=== PATIENT | male | born 1945 | race Caucasian/White ===

== ENCOUNTER 2016-07-30 15:35 | Emergency (ER) | payer MEDICARE ==
--- NOTE | 2016-07-30 15:47 | ER Document Report ---
ED Medical Screen (RME) - General Stated Complaint: BREATHING PROBLEM Mode of Arrival: Ambulatory Information source: Patient Notes: Patient complains of cough and upper respiratory symptoms for the past 3 weeks. Patient has had 2 separate courses of azithromycin without improvement of his symptoms. Patient denies any chest pain but does report shortness of breath. hx: Diabetes I have greeted and performed a rapid initial assessment of this patient. A comprehensive ED assessment and evaluation of the patient, analysis of test results and completion of the medical decision making process will be conducted by additional ED providers. TRAVEL OUTSIDE OF THE [place] IN LAST 30 DAYS: No - Related Data Allergies/Adverse Reactions: No Known Allergies Allergy (Verified 07/30/16 15:42) Past Medical History - Past Medical History Cardiac Medical History: Reports: Hx Hypercholesterolemia Neurological Medical History: Reports: Hx Cerebrovascular Accident Endocrine Medical History: Reports: Hx Diabetes Mellitus Type 2 Past Surgical History: Reports: Hx Cardiac Catheterization - Immunizations Hx Diphtheria, Pertussis, Tetanus Vaccination: Yes Physical Exam - Vital signs Vitals: Temp Pulse Resp BP Pulse Ox 97.5 F 91 28 H 148/68 H 98 07/30/16 15:41 07/30/16 15:41 07/30/16 15:41 07/30/16 15:41 07/30/16 15:41 - Respiratory Respiratory status: No respiratory distress Breath sounds: Normal Course - Vital Signs Vital signs: Temp Pulse Resp BP Pulse Ox 97.5 F 91 28 H 148/68 H 98 07/30/16 15:41 07/30/16 15:41 07/30/16 15:41 07/30/16 15:41 07/30/16 15:41
[2016-07-30 16:54] LABS: APPEARANCE,URINE CLEAR; BILIRUBIN,URINE NEGATIVE (NEGATIVE); GLUCOSE, URINE NEGATIVE (NEGATIVE); KETONES,URINE NEGATIVE (NEGATIVE); LEUKOCYTE ESTERASE,URINE NEGATIVE (NEGATIVE); NITRITE,URINE NEGATIVE (NEGATIVE); PROTEIN,URINE NEGATIVE (NEGATIVE); URINE SPECIFIC GRAVITY 1.023; UROBILINOGEN,URINE NEGATIVE mg/dL (<2.0)
[2016-07-30 17:17] LABS: ABSOLUTE LYMPHOCYTES (AUTO) 1.4 10^3/uL (0.5-4.7); ABSOLUTE MONOCYTES (AUTO) 0.5 10^3/uL (0.1-1.4); ABSOLUTE NEUT (AUTO) 5.3 10^3/uL (1.7-8.2); BASOPHILS % (AUTO) 0.1 % (0-2); EOSINOPHILS % (AUTO) 0.3 % (0-6); HEMATOCRIT 42.1 % (37.9-51.0); HEMOGLOBIN 14.3 g/dL (13.5-17.0); HGB HCT DIFFERENCE 0.8; LYMPHOCYTES % (AUTO) 19.6 % (13-45); MEAN CORPUSCULAR HEMOGLOBIN 28.6 pg (27.0-33.4); MEAN CORPUSCULAR HGB CONC 33.9 g/dL (32.0-36.0); MEAN CORPUSCULAR VOLUME 84 fl (80-97); MONOCYTES % (AUTO) 6.6 % (3-13); RED BLOOD COUNT 4.99 10^6/uL (4.35-5.55); RED CELL DISTRIBUTION WIDTH 13.9 % (11.5-14.0); SEGMENTED NEUTROPHILS % (AUTO) 73.4 % (42-78); WHITE BLOOD COUNT 7.2 10^3/uL (4.0-10.5)
[2016-07-30 17:25] LABS: ALANINE AMINOTRANSFERASE 29 U/L (21-72); ALBUMIN 5.2 g/dL (3.5-5.0); ALKALINE PHOSPHATASE 71 U/L (38-126); ANION GAP 16 (5-19); ASPARTATE AMINO TRANSFERASE 25 U/L (17-59); BILIRUBIN,TOTAL 0.9 mg/dL (0.2-1.3); BLOOD UREA NITROGEN 17 mg/dL (7-20); CARBON DIOXIDE 28 mmol/L (22-30); CHLORIDE 99 mmol/L (98-107); CREATINE KINASE 40 U/L (55-170); CREATININE RESULT 1.21 mg/dL (0.52-1.25); GLUCOSE 125 mg/dL (75-110); MAGNESIUM 1.8 mg/dL (1.6-2.3); POTASSIUM 4.4 mmol/L (3.6-5.0); SODIUM 143.3 mmol/L (137-145); TOTAL PROTEIN 8.2 g/dL (6.3-8.2)
[2016-07-30 17:37] LABS: CREATINE KINASE MB 0.26 ng/mL (<4.55); TROPONIN I < 0.012 ng/mL
[2016-07-30] MEDS ORDERED: ALBUTEROL SULFATE 0.083% NEB 2.5 MG/3 ML AMPUL NEB ONE (18:55)
--- NOTE | 2016-07-30 18:58 | ER Document Report ---
ED Flu Like - General Chief Complaint: Flu Symptoms Stated Complaint: BREATHING PROBLEM Time seen by provider: 18:55 Mode of Arrival: Ambulatory Information source: Patient, Relative - Rabia TRAVEL OUTSIDE OF THE [place] IN LAST 30 DAYS: No - HPI Patient complains to provider of: cough, congestion, fever, nausea, diarrhea Onset: Other - 2-3 weeks Timing/Duration: Persistent Quality of pain: No pain Severity: Mild Associated symptoms: Chills, Diarrhea, Fever, Nausea Similar symptoms previously: No Recently seen / treated by doctor: Yes Notes: Patient is a 70-year-old male who presents to the emergency room with his complaining of 2-3 weeks of generalized symptoms that her flulike in nature, he' s had cough, cold, congestion, fever at times, nausea and diarrhea earlier this week, he lost approximately 13 pounds, his cough is productive of a small amount of clear colored phlegm, he's been drinking fluids okay, denies any urinary symptoms, he has been seen by his primary care provider at least twice during the course of this illness and has been on 2 separate courses of Z-Jarret antibiotics, he denies any pain anywhere at the present time - Related Data Allergies/Adverse Reactions: No Known Allergies Allergy (Verified 07/30/16 15:42) Past Medical History - General Information source: Patient - Social History Smoking Status: Unknown if Ever Smoked Chew tobacco use (# tins/day): Yes Frequency of alcohol use: None Drug Abuse: None Family History: Reviewed & Not Pertinent Patient has suicidal ideation: No Patient has homicidal ideation: No - Past Medical History Cardiac Medical History: Reports: Hx Hypercholesterolemia Neurological Medical History: Reports: Hx Cerebrovascular Accident Endocrine Medical History: Reports: Hx Diabetes Mellitus Type 2 Renal/ Medical History: Denies: Hx Peritoneal Dialysis Past Surgical History: Reports: Hx Cardiac Catheterization - Immunizations Hx Diphtheria, Pertussis, Tetanus Vaccination: Yes Hx Pneumococcal Vaccination: 03/25/13 Review of Systems - Review of Systems Constitutional: Chills, Fever, Malaise EENT: Nose congestion Cardiovascular: No symptoms reported Respiratory: Cough Gastrointestinal: Diarrhea, Nausea Genitourinary: No symptoms reported Male Genitourinary: No symptoms reported Musculoskeletal: No symptoms reported Skin: No symptoms reported Hematologic/Lymphatic: No symptoms reported Neurological/Psychological: No symptoms reported -: Yes All other systems reviewed and negative Physical Exam - Vital signs Vitals: Temp Pulse Resp BP Pulse Ox 97.5 F 91 28 H 148/68 H 98 07/30/16 15:41 07/30/16 15:41 07/30/16 15:41 07/30/16 15:41 07/30/16 15:41 Interpretation: Normal - General General appearance: Appears well, Alert - HEENT Head: Normocephalic, Atraumatic Eyes: Normal Pupils: PERRL - Respiratory Respiratory status: No respiratory distress Chest status: Nontender Breath sounds: Nonproductive cough, Wheezing Chest palpation: Normal - Cardiovascular Rhythm: Regular Heart sounds: Normal auscultation Murmur: No - Abdominal Inspection: Normal Distension: No distension Bowel sounds: Normal Tenderness: Nontender Organomegaly: No organomegaly - Back Back: Normal, Nontender - Extremities General upper extremity: Normal inspection, Nontender, Normal color, Normal ROM , Normal temperature General lower extremity: Normal inspection, Nontender, Normal color, Normal ROM , Normal temperature, Normal weight bearing. No: Annalise's sign - Neurological Neuro grossly intact: Yes Cognition: Normal Orientation: AAOx4 Gemini Coma Scale Eye Opening: Spontaneous Gemini Coma Scale Verbal: Oriented Acworth Coma Scale Motor: Obeys Commands Acworth Coma Scale Total: 15 Speech: Normal Motor strength normal: LUE, RUE, LLE, RLE Sensory: Normal - Psychological Associated symptoms: Normal affect, Normal mood - Skin Skin Temperature: Warm Skin Moisture: Dry Skin Color: Normal Course - Re-evaluation Re-evalutation: 07/30/16 20:25 Patient reports feeling much better after a breathing treatment, lab and imaging findings were discussed with patient and at bedside which are fairly unremarkable, symptoms are consistent with a viral upper respiratory illness, he will be given an albuterol inhaler to take home and advised to follow-up with his primary care provider in the next 1-2 days or return if symptoms worsen, patient acknowledges understanding and agreement with this plan - Vital Signs Vital signs: Temp Pulse Resp BP Pulse Ox 97.5 F 91 28 H 148/68 H 98 07/30/16 15:41 07/30/16 15:41 07/30/16 15:41 07/30/16 15:41 07/30/16 15:41 - Laboratory Result Diagrams: 07/30/16 16:27 07/30/16 16:27 Laboratory results interpreted by me: 07/30/16 16:27 Est GFR (Non-Af Amer) 59 L Glucose 125 H Creatine Kinase 40 L Albumin 5.2 H - Diagnostic Test Radiology reviewed: Image reviewed, Reports reviewed - EKG Interpretation by Me EKG shows normal: Sinus rhythm Rate: Normal Rhythm: NSR Additional EKG results interpreted by me: 07/30/16 20:26 Patient does have flipped T waves in V3 and V4 that were not present on previous EKG dated 03/26/2026 Discharge - Discharge Clinical Impression: Viral upper respiratory illness Condition: Stable Disposition: HOME, SELF-CARE Instructions: Viral Syndrome ([facility]), Upper Respiratory Illness ([facility]) Additional Instructions: Follow up with your primary care provider in one to 2 days. Return to the emergency room immediately if symptoms worsen or any additional concerns.
--- NOTE | 2016-07-30 19:26 | EKG REPORT ---
SEVERITY:- BORDERLINE ECG - SINUS RHYTHM BORDERLINE T ABNORMALITIES, ANTERIOR LEADS : Confirmed by: Rekha Chou 30-Jul-2016 19:25:20
[2016-07-30 20:36] VITALS: BP 129/87
[2016-07-30] MEDS ORDERED: ALBUTEROL SULFATE HFA (90 MCG/PUFF) 8 GM MDI (1 MDI/ER DISP) IH SCH (22:00)
== END 2016-07-30 20:37 | disposition home or self-care (01) ==
LOC: ER 15:35
DX: J06.9 Acute upper respiratory infection, unspecified (principal); R50.9 Fever, unspecified; R53.81 Other malaise; R11.0 Nausea; R19.7 Diarrhea, unspecified; E78.00 Pure hypercholesterolemia, unspecified; Z86.73 Personal history of transient ischemic attack (TIA), and cerebral infarction without residual deficits; E11.9 Type 2 diabetes mellitus without complications
CPT/HCPCS: 93005; 94640; 99284; 36415; 87040; 82553; 82550; 83735; 85025; 80053; 81001; 84484; 83880; 71020; 93010; A9270; J3490

== ENCOUNTER 2017-08-26 11:30 | Emergency (ER) | payer MEDICARE ==
--- NOTE | 2017-08-26 12:29 | ER Document Report ---
ED Medical Screen (RME) - General Chief Complaint: Leg Pain Stated Complaint: HIP PAIN Time Seen by Provider: 08/26/17 12:25 Notes: Patient is here complaining of pain in his right side, which is chronic since he had a stroke 20 years ago. His pain is usually confined to the right hip and buttock area and also the right leg. That is where he is having pain today that got worse yesterday, to the point that he is unable to stand and walk, which he normally can do. His pain runs from the right hip down the right leg, which is different for him. He recalls no unusual activity or injury. His worsened pain started while he was sitting. 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 He did not have any surgery, but recovered to the point where he has mobility and can walk without assistance and without a walker. He does have some problems with speaking and some dysphasia. TRAVEL OUTSIDE OF THE [place] IN LAST 30 DAYS: No - Related Data Allergies/Adverse Reactions: No Known Allergies Allergy (Verified 08/26/17 11:30) Past Medical History - Past Medical History Cardiac Medical History: Reports: Hx Hypercholesterolemia Neurological Medical History: Reports: Hx Cerebrovascular Accident Endocrine Medical History: Reports: Hx Diabetes Mellitus Type 2 Renal/ Medical History: Denies: Hx Peritoneal Dialysis Past Surgical History: Reports: Hx Cardiac Catheterization - Immunizations Hx Diphtheria, Pertussis, Tetanus Vaccination: Yes Physical Exam - Vital signs Vitals: Temp Pulse Resp BP Pulse Ox 98.0 F 76 16 162/84 H 95 08/26/17 11:36 08/26/17 11:36 08/26/17 11:36 08/26/17 11:36 08/26/17 11:36 Course - Vital Signs Vital signs: Temp Pulse Resp BP Pulse Ox 98.0 F 76 16 162/84 H 95 08/26/17 11:36 08/26/17 11:36 08/26/17 11:36 08/26/17 11:36 08/26/17 11:36
[2017-08-26 12:45] LABS: ABSOLUTE LYMPHOCYTES (AUTO) 0.9 10^3/uL (0.5-4.7); ABSOLUTE MONOCYTES (AUTO) 0.3 10^3/uL (0.1-1.4); ABSOLUTE NEUT (AUTO) 3.7 10^3/uL (1.7-8.2); BASOPHILS % (AUTO) 0.1 % (0-2); EOSINOPHILS % (AUTO) 0.4 % (0-6); HEMOGLOBIN 13.2 g/dL (13.5-17.0); LYMPHOCYTES % (AUTO) 18.8 % (13-45); MEAN CORPUSCULAR HEMOGLOBIN 29.5 pg (27.0-33.4); MEAN CORPUSCULAR HGB CONC 34.8 g/dL (32.0-36.0); MEAN CORPUSCULAR VOLUME 85 fl (80-97); MONOCYTES % (AUTO) 6.6 % (3-13); PLATELET COUNT 224 10^3/uL (150-450); RED BLOOD COUNT 4.48 10^6/uL (4.35-5.55); RED CELL DISTRIBUTION WIDTH 13.7 % (11.5-14.0); SEGMENTED NEUTROPHILS % (AUTO) 74.1 % (42-78); TOTAL CELLS COUNTED % (AUTO) 100 %
[2017-08-26 13:00] LABS: ALANINE AMINOTRANSFERASE 22 U/L (21-72); ALKALINE PHOSPHATASE 65 U/L (38-126); ANION GAP 13 (5-19); ASPARTATE AMINO TRANSFERASE 18 U/L (17-59); BILIRUBIN,DIRECT 0.1 mg/dL (0.0-0.4); BILIRUBIN,TOTAL 0.5 mg/dL (0.2-1.3); BLOOD UREA NITROGEN 15 mg/dL (7-20); CALCIUM 10.2 mg/dL (8.4-10.2); CARBON DIOXIDE 28 mmol/L (22-30); CHLORIDE 99 mmol/L (98-107); GLUCOSE 149 mg/dL (75-110); POTASSIUM 4.5 mmol/L (3.6-5.0); SODIUM 139.5 mmol/L (137-145); TOTAL PROTEIN 7.3 g/dL (6.3-8.2)
--- NOTE | 2017-08-26 13:10 | RADIOLOGY REPORT (SQ) ---
EXAM DESCRIPTION: HIP RIGHT AP/LATERAL COMPLETED DATE/TIME: 08/26/2017 12:57 pm REASON FOR STUDY: pain in hip and unable to bear weight COMPARISON: None. NUMBER OF VIEWS: Two views. TECHNIQUE: AP pelvis and additional frog-leg view of the right hip. LIMITATIONS: None. FINDINGS: MINERALIZATION: Normal. RIGHT HIP: No acute fracture. Contour deformity suggest femoroacetabular impingement. LEFT HIP: Contour deformity suggest femoroacetabular impingement. PUBIS AND ISCHIUM: No fracture. PELVIS: No fracture. SACRUM: No fracture or dislocation. No worrisome bone lesions. LOWER LUMBAR SPINE: No fracture or dislocation. No worrisome bone lesions. No significant disc disea se. SOFT TISSUES: No findings. OTHER: No other significant finding. IMPRESSION: No acute findings. TECHNICAL DOCUMENTATION: JOB ID: [id number] [employer]- All Rights Reserved Reading location - IP/workstation name: [email or web address]
[2017-08-26 13:31] LABS: APPEARANCE,URINE CLEAR; BILIRUBIN,URINE NEGATIVE (NEGATIVE); COLOR,URINE YELLOW; GLUCOSE, URINE NEGATIVE (NEGATIVE); KETONES,URINE NEGATIVE (NEGATIVE); LEUKOCYTE ESTERASE,URINE NEGATIVE (NEGATIVE); NITRITE,URINE NEGATIVE (NEGATIVE); PROTEIN,URINE NEGATIVE (NEGATIVE); URINE SPECIFIC GRAVITY 1.014
--- NOTE | 2017-08-26 14:00 | ER Document Report ---
ED General - General Chief Complaint: Leg Pain Stated Complaint: HIP PAIN Time Seen by Provider: 08/26/17 12:25 Mode of Arrival: Ambulatory Information source: Patient Notes: 71-year-old male history of right-sided paresthesia intermittent pain secondary to previous CVA presents with complaints of pain on the right leg. Patient denies any back pain notes the pain is from his buttocks to his foot. Patient denies any trauma but has been sitting in a recliner. Patient denies any other neuro deficits denies cauda equina concerns TRAVEL OUTSIDE OF THE [place] IN LAST 30 DAYS: No - HPI Onset: Other Onset/Duration: Persistent Quality of pain: Achy Severity: Moderate Pain Level: 2 Associated symptoms: Other Exacerbated by: Movement, Walking Relieved by: Denies Similar symptoms previously: Yes Recently seen / treated by doctor: Yes - Related Data Allergies/Adverse Reactions: No Known Allergies Allergy (Verified 08/26/17 11:30) Past Medical History - Social History Smoking Status: Never Smoker Cigarette use (# per day): No Chew tobacco use (# tins/day): No Smoking Education Provided: No Frequency of alcohol use: None Drug Abuse: None Family History: Reviewed & Not Pertinent Patient has suicidal ideation: No Patient has homicidal ideation: No - Past Medical History Cardiac Medical History: Reports: Hx Hypercholesterolemia Neurological Medical History: Reports: Hx Cerebrovascular Accident Endocrine Medical History: Reports: Hx Diabetes Mellitus Type 2 Renal/ Medical History: Denies: Hx Peritoneal Dialysis Past Surgical History: Reports: Hx Cardiac Catheterization - Immunizations Hx Diphtheria, Pertussis, Tetanus Vaccination: Yes Hx Pneumococcal Vaccination: 03/25/13 Review of Systems - Review of Systems Notes: REVIEW OF SYSTEMS: CONSTITUTIONAL : Denies fever, chills, or sweats. Denies recent illness. EENT: Denies eye, ear, throat, or mouth pain or symptoms. Denies nasal or sinus congestion or discharge. Denies throat, tongue, or mouth swelling or difficulty swallowing. CARDIOVASCULAR: Denies chest pain. Denies palpitations or racing or irregular heart beat. Denies ankle edema. RESPIRATORY: Denies cough, cold, or chest congestion. Denies shortness of breath, difficulty breathing, or wheezing. GASTROINTESTINAL: Denies abdominal pain or distention. Denies nausea, vomiting , or diarrhea. Denies blood in vomitus, stools, or per rectum. Denies black, tarry stools. Denies constipation. GENITOURINARY: Denies difficulty urinating, painful urination, burning, frequency, blood in urine, or discharge. MUSCULOSKELETAL: Admits to right leg pain SKIN: Denies rash, lesions or sores. HEMATOLOGIC : Denies easy bruising or bleeding. LYMPHATIC: Denies swollen, enlarged glands. NEUROLOGICAL: Denies confusion or altered mental status. Denies passing out or loss of consciousness. Denies dizziness or lightheadedness. Denies headache. Denies weakness or paralysis or loss of use of either side. Denies problems with gait or speech. Denies sensory loss, numbness, or tingling. Denies seizures. PSYCHIATRIC: Denies anxiety or stress. Denies depression, suicidal ideation, or homicidal ideation. ALL OTHER SYSTEMS REVIEWED AND NEGATIVE. Dictation was performed using [employer] voice recognition software PHYSICAL EXAMINATION: GENERAL: Well-appearing, well-nourished and in no acute distress. HEAD: Atraumatic, normocephalic. EYES: Pupils equal round and reactive to light, extraocular movements intact, sclera anicteric, conjunctiva are normal. ENT: Nares patent, oropharynx clear without exudates. Moist mucous membranes. NECK: Normal range of motion, supple without lymphadenopathy LUNGS: Breath sounds clear to auscultation bilaterally and equal. No wheezes rales or rhonchi. HEART: Regular rate and rhythm without murmurs ABDOMEN: Soft, nontender, nondistended abdomen. No guarding, no rebound. No masses appreciated. Musculoskeletal: Normal range of motion, no pitting or edema. No cyanosis. Point tenderness at the sciatic nerve region of the buttocks no neuro deficits baseline weakness noted NEUROLOGICAL: Cranial nerves grossly intact. PSYCH: Normal mood, normal affect. SKIN: Warm, Dry, normal turgor, no rashes or lesions noted. Physical Exam - Vital signs Vitals: Temp Pulse Resp BP Pulse Ox 98.0 F 76 16 162/84 H 95 08/26/17 11:36 08/26/17 11:36 08/26/17 11:36 08/26/17 11:36 08/26/17 11:36 Course - Re-evaluation Re-evalutation: 08/26/17 15:53 Significant workup was performed for this patient's complaints of hip pain and buttocks pain radiating down the leg. No significant abnormalities noted on blood work. I believe the patient's pain is secondary to sciatica, he is tender in the sciatic nerve region. He will be treated for this and I have no suspicion of aortic dissection blood clots or any other life-threatening issues at this time very strict return precautions have been provided to the patient and family member patient will be given multiple pain medications After performing a Medical Screening Examination, I estimate there is LOW risk for EXPANDING OR RUPTURED ABDOMINAL AORTIC ANEURYSM, CAUDA EQUINA SYNDROME, EPIDURAL MASS LESION, or HERNIATED DISK CAUSING SEVERE SPINAL STENOSIS, thus I consider the discharge disposition reasonable. I have reevaluated this patient multiple times and no significant life threatening changes are noted. The patient and I have discussed the diagnosis and risks, and we agree with discharging home and close follow-up. We also discussed returning to the Emergency Department immediately if new or worsening symptoms occur with the understanding that symptoms and presentations can change. We have discussed the symptoms which are most concerning (e.g., saddle anesthesia, urinary or bowel incontinence or retention, changing or worsening pain) that necessitate immediate return. - Vital Signs Vital signs: Temp Pulse Resp BP Pulse Ox 99.2 F 83 16 134/73 H 98 08/26/17 14:19 08/26/17 14:19 08/26/17 11:36 08/26/17 14:19 08/26/17 14:19 - Laboratory Result Diagrams: 08/26/17 12:34 08/26/17 12:34 Laboratory results interpreted by me: 08/26/17 08/26/17 08/26/17 12:34 12:34 12:58 Hgb 13.2 L Glucose 149 H Urine Urobilinogen 2.0 H Discharge - Discharge Clinical Impression: Sciatica Qualifiers: Laterality: right Qualified Code(s): M54.31 - Sciatica, right side HTN (hypertension) Qualifiers: Hypertension type: essential hypertension Qualified Code(s): I10 - Essential ( primary) hypertension Condition: Stable Disposition: HOME, SELF-CARE Instructions: Sciatica ([facility]) Additional Instructions: Follow up with your physician tomorrow for further care or return to the ED IMMEDIATELY if symptoms worsen or new concerns occur. If you cannot afford to follow up with your primary care physician a list of low cost clinics have been provided at the end of your discharge papers as well. Prescriptions: Cyclobenzaprine HCl [Flexeril 5 mg Tablet] 5 mg PO TID #15 tablet Gabapentin [Neurontin 300 mg Capsule] 300 mg PO Q12 #60 capsule Oxycodone HCl/Acetaminophen [Percocet 5-325 mg Tablet] 1 - 2 tab PO Q4H PRN #15 tablet PRN Reason:
[2017-08-26] MEDS ORDERED: FENTANYL CITRATE INJ/PF 100 MCG/2 ML AMPUL IM ONE (14:07)
[2017-08-26 14:20] VITALS: BP 134/73
== END 2017-08-26 14:20 | disposition home or self-care (01) ==
LOC: ER 11:30
DX: M54.31 Sciatica, right side (principal); E11.9 Type 2 diabetes mellitus without complications; I10 Essential (primary) hypertension
CPT/HCPCS: 36415; 80053; 81001; 85025; 99283